=== PATIENT | male | born 1980 | race Caucasian/White ===

== ENCOUNTER 2017-05-08 21:10 | Emergency (ER) | payer OTHER ==
[~2017-05-08 21:10] MED LIST: BENADRYL25 MG PO; DOXYCYCLINE150 MG PO; IBUPROFEN800 MG PO; PREDNISONE10 MG/DOSE PO
== END 2017-05-08 22:42 | disposition home or self-care (01) ==
LOC: CED 21:10 → CFTX 21:10
DX: S56.912A Strain of unspecified muscles, fascia and tendons at forearm level, left arm, initial encounter (principal); F17.200 Nicotine dependence, unspecified, uncomplicated; X50.0XXA Overexertion from strenuous movement or load, initial encounter; Y93.89 Activity, other specified; Y92.69 Other specified industrial and construction area as the place of occurrence of the external cause; Y99.0 Civilian activity done for income or pay
CPT/HCPCS: 29260; 96372; 99283; J1885

== ENCOUNTER 2017-06-10 15:31 | Emergency (ER) | payer OTHER | END 2017-06-10 16:38 | disposition home or self-care (01) | LOC: SED 15:31 | DX: T23.101A Burn of first degree of right hand, unspecified site, initial encounter (principal); F17.210 Nicotine dependence, cigarettes, uncomplicated; T59.91XA Toxic effect of unspecified gases, fumes and vapors, accidental (unintentional), initial encounter; Y92.009 Unspecified place in unspecified non-institutional (private) residence as the place of occurrence of the external cause | CPT/HCPCS: 16020; 99283 ==

== ENCOUNTER 2017-08-07 04:19 | Emergency (ER) | payer OTHER ==
[~2017-08-07] VITALS: Ht 180.3 cm; Wt 72.6 kg
== END 2017-08-07 06:10 | disposition home or self-care (01) ==
LOC: CED 04:19
DX: H16.133 Photokeratitis, bilateral (principal); F17.210 Nicotine dependence, cigarettes, uncomplicated
CPT/HCPCS: 99283